=== PATIENT | female | born 1940 | race Caucasian/White ===

== ENCOUNTER 2018-04-09 07:02 | Day surgery (SDC) | payer MEDICARE, BC ==
[~2018-04-09 07:02] MED LIST: HYDROmorphone 0.5 MG/0.5 ML SYRINGE IVP PRN; LACTATED RINGERS 1,000 ML IV SCH; LIDOCAINE 1% 20 ML VIAL (10MG/ML) FOR IV START INTRADERMA PRN; ONDANSETRON 4 MG/2 ML VIAL IVP ONE; Pre Op ABX Message 1 EACH MISC MISCELLANE ONE
[2018-04-09 08:18] VITALS: TEMP 97.7
[2018-04-09 08:30] LABS: Glucose,Whole Blood 133 mg/dL (75-99)
[2018-04-09] MEDS ORDERED: SODIUM CHLORIDE 0.9% 500 ML IV ONE ×2 (08:35)
[2018-04-09] MEDS ORDERED: MIDAZOLAM 2 MG/2 ML VIAL IVP ONE (08:36)
[2018-04-09 08:59] LABS: Anisocytosis Slight; Basophils % (A) 0 %; Eosinophils # (A) 0.2 k/uL (0-0.7); Eosinophils % (A) 3 %; HCT 33.1 % (34.0-46.0); HGB 10.3 gm/dL (11.4-16.0); Hypochromasia Moderate; Lymphocytes # (A) 1.4 k/uL (1.0-4.8); Lymphocytes % (A) 21 %; MCH 24.9 pg (25.0-35.0); MCHC 31.1 g/dL (31.0-37.0); Mean Platelet Volume 7.9; Microcytosis Slight; Monocytes # (A) 0.5 k/uL (0-1.0); Monocytes % (A) 8 %; Neutrophils # (A) 4.3 k/uL (1.3-7.7); Neutrophils % (A) 66 %; Platelet Count 205 k/uL (150-450); RBC 4.13 m/uL (3.80-5.40); RDW 19.1 % (11.5-15.5); WBC 6.5 k/uL (3.8-10.6)
[2018-04-09] MEDS ORDERED: LIDOCAINE 2%-EPI 1:100,000 20 ML VIAL ONE (09:03)
[2018-04-09] MEDS ORDERED: MIDAZOLAM 2 MG/2 ML VIAL ONE (09:03)
[2018-04-09] MEDS ORDERED: fentaNYL (PF) 50 MCG/ML 2 ML AMP ONE (09:03)
[2018-04-09] MEDS ORDERED: PROPOFOL 10 MG/ML 20 ML VIAL IV ONE (09:03)
[2018-04-09] MEDS ORDERED: ROPIVACAINE 5 MG/ML 30 ML VIAL ONE (09:03)
--- NOTE | 2018-04-09 09:05 | P.ONQ ---
Anesthesiology Proc Note - PNB - Peripheral Nerve Block Performed Left Axillary Single Time Out Performed: Yes (0832) Procedure Start Time: 08:32 Procedure Stop Time: 08:42 Indication: Acute Post-Operative Pain, Dx/Pain Location (Left hand pain), Requested by physician Sedation Type: Sedate with meaningful contact maintained Preparation: Sterile Prep Position: Supine Catheter: None Needle Types: On-Q Needle Size: 50mm (2") Needle Gauge: 21 Injectate: Other (see comment) (15ml 0.5% Ropivacaine with 10ml 2% Lidocaine with 1:200,000 epi) Blood Aspirated: No Pain Paresthesia on Injection Noted: No Resistance on Injection: Normal Events: Uneventful and Well Tolerated
[2018-04-09 09:10] LABS: Potassium 3.5 mmol/L (3.5-5.1)
[2018-04-09 10:15] VITALS: RESP 16
[2018-04-09 10:25] LABS: Glucose,Whole Blood 125 mg/dL (75-99)
[2018-04-09 10:40] VITALS: BP 148/78; PULSE 55
--- NOTE | 2018-04-09 11:44 | OP ---
OPERATIVE REPORT DATE OF SERVICE: 04/09/2018 PREOPERATIVE DIAGNOSIS: 1. Basal joint arthritis, left thumb. 2. Left cubital tunnel syndrome. 3. Recurrent left carpal tunnel syndrome. FINAL DIAGNOSES: 1. Basal joint arthritis, left thumb. 2. Left cubital tunnel syndrome. 3. Recurrent left carpal tunnel syndrome. PROCEDURE: 1. Excision of trapezium with ligament reconstruction tendon interposition arthroplasty using the flexor carpi radialis basal joint left thumb. 2. Cubital tunnel release, left elbow. 3. Redo carpal tunnel release left wrist with neurolysis of the median nerve. SURGEON: Baudilio Eller DO. SENIOR MARKETING DATA ANALYST: Rosa Maria Sadler. GROSS PATHOLOGY: Regarding the redo carpal tunnel. There was minimal adhesion of the median nerve and there were little signs of excess tension on the ligament. The release went without complication and the nerve appeared to be intact. DESCRIPTION OF PROCEDURE: The patient was taken to the Operative Suite after an axillary block was performed by the Department of Anesthesia in the holding area with good results. The involved arm was prepped and draped in the usual manner, elevated, exsanguinated and blood pressure tourniquet inflated to 250 mm of mercury. A volar incision was made over the palm of the hand using a Woodward approach. The dissection was taken through the subcutaneous tissue bluntly to identify and to preserve sensory branches. The flexor carpi radialis tendon was initially identified and kept in view throughout the remainder of the procedure. The thenar muscles were then gently dissected off of the volar capsule and reflected ulnarly and distally. Longitudinal arthrotomy was then made into the trapezial metacarpal and scaphotrapezial joints. The trapezium was dissected sharply with a little traction on the thumb and care again, given to monitoring the position of the flexor carpi radialis. The trapezium was osteotomized and removed in piecemeal fashion using rongeur. Again, the flexor carpi radialis tendon was kept intact so as not to be harmed during this portion of the procedure. A drill hole was then made into the base of the first metacarpal, beginning with an awl and enlarged using drill bits and a large curette. A similar hole was drilled on the dorsal aspect of the base of the first metacarpal perpendicular to the plane of the nail bed. Attention was then turned to harvesting the flexor carpi radialis. Approximately 8 to 10 cm proximal to the wrist, small transverse incision was made and blunt dissection was taken through the subcutaneous tissue. The flexor carpi radialis tendon was identified and released to this level. It was retracted into the wrist wound with a gentle tug. A suspension sling arthroplasty was then performed along with ligament reconstruction of the deep volar ligament using the flexor carpi radialis tendon. The edge of the tendon was secured with suture. The suture was then passed into the base of the first metacarpal and brought out through the dorsal drill hole and brought back down upon itself and abductor pollicis longus tendons. It was secured in place with 3-0 PDS suture. It was then brought back around itself, back through the abductor pollicis longus tendons, and back down upon itself again and further secured with 3-0 PDS suture. Again, in this manner reconstruction of the deep volar ligament was accomplished as well as a suspension sling arthroplasty and natural tendon spacer for the joint. Next, a longitudinal incision was made along the ring finger ray distal to the wrist crease. Dissection was taken through the skin and subcutaneous tissue, initially sharp through the skin and then blunt through the subcutaneous tissue to ensure protection of any potential terminal transverse branches of the palmar cutaneous nerve. The palmar fascia was then incised under direct vision longitudinally exposing the transverse carpal ligament. The transverse carpal ligament also was incised under direct visualization. The median nerve was then reflected free of tenosynovium to ensure no adhesions. At this point, a slight hour glass constriction was noted of the median nerve beneath the transverse carpal ligament. Both wounds were again irrigated and were closed with running and interrupted 5-0 nylon suture. A soft bulky dressing was then applied including the volar plaster splint, immobilizing the wrist in neutral position and a thumb spica splint to the IP joint, immobilizing the thumb. Next, a longitudinal incision was then made, somewhat posteriorly near the olecranon. Dissection was then taken through the skin and subcutaneous tissue with blunt dissection then performed to protect any posterior ranches of the medial antebrachial cutaneous nerve of the arm. The ulnar nerve was then visualized in the retrocondylar groove and was traced in both the proximal distal direction. Care was taken to ensure all potential site of nerve entrapment were decompressed including the arcade of Rudolph, the medial intermuscular septums, the retrocondylar groove, decubital tunnel and the flexor aponeurosis distally. Care was taken to avoid dissecting the ulnar nerve from it?s vascular supply. At the completion of the procedure, the elbow was placed in flexion and there is no signs of subluxation. The wound was then irrigated and the skin was closed with running 5-0 nylon suture. Marcaine was injected for long acting anesthetic. A soft bulky dressing was applied and the patient taken to the recovery room in satisfactory condition. MMODL / IJN: [id number] /
== END 2018-04-09 10:59 | disposition home or self-care (01) ==
LOC: OR 07:02
PROVIDERS: ATTEND Orthopaedic Surgery Hand Surgery
DX: M18.12 Unilateral primary osteoarthritis of first carpometacarpal joint, left hand (principal); G56.22 Lesion of ulnar nerve, left upper limb; G56.02 Carpal tunnel syndrome, left upper limb; I13.11 Hypertensive heart and chronic kidney disease without heart failure, with stage 5 chronic kidney disease, or end stage renal disease; E11.22 Type 2 diabetes mellitus with diabetic chronic kidney disease; N18.6 End stage renal disease; E11.40 Type 2 diabetes mellitus with diabetic neuropathy, unspecified; Z99.2 Dependence on renal dialysis; I25.10 Atherosclerotic heart disease of native coronary artery without angina pectoris; I44.4 Left anterior fascicular block; E78.5 Hyperlipidemia, unspecified; I25.2 Old myocardial infarction; M19.90 Unspecified osteoarthritis, unspecified site; E66.9 Obesity, unspecified; R26.81 Unsteadiness on feet; H91.90 Unspecified hearing loss, unspecified ear; Z79.4 Long term (current) use of insulin; Z79.02 Long term (current) use of antithrombotics/antiplatelets; Z79.899 Other long term (current) drug therapy; Z79.82 Long term (current) use of aspirin; Z85.3 Personal history of malignant neoplasm of breast; Z98.61 Coronary angioplasty status; Z88.2 Allergy status to sulfonamides; Z98.84 Bariatric surgery status; Z87.891 Personal history of nicotine dependence; Z88.1 Allergy status to other antibiotic agents; Z68.37 Body mass index [BMI] 37.0-37.9, adult
CPT/HCPCS: 64718; 64721; 25447; 25310; 82565; 84132; 84520; 85025; J2250; J2405; J3010; J2795; J2704

== ENCOUNTER 2019-02-04 12:46 | Day surgery (SDC) | payer MEDICARE, BC ==
[2019-02-03 13:59] VITALS: BMI 31.6
[~2019-02-04 12:46] MED LIST changes: +DEXAMETHASONE SOD PHOSPHATE 10 MG/ML 1 ML VIAL IV ONE; +MIDAZOLAM 2 MG/2 ML VIAL IV PRN; -Pre Op ABX Message 1 EACH MISC MISCELLANE ONE; +fentaNYL (PF) 50 MCG/ML 2 ML AMP IVP PRN
[2019-02-04 13:05] VITALS: RESP 16; TEMP 97.5
[2019-02-04 13:13] LABS: Glucose,Whole Blood 79 mg/dL (75-99)
[2019-02-04] MEDS ORDERED: fentaNYL (PF) 50 MCG/ML 2 ML AMP IV ONE (13:16)
[2019-02-04] MEDS ORDERED: PROPOFOL 10 MG/ML 20 ML VIAL IV ONE (13:30)
[2019-02-04] MEDS ORDERED: ROPIVACAINE 5 MG/ML 30 ML VIAL ONE (13:30)
[2019-02-04] MEDS ORDERED: DEXAMETHASONE SOD PHOSPHATE 4 MG/ML 1 ML VIAL ONE (13:30)
--- NOTE | 2019-02-04 13:49 | P.ANPRN ---
Procedure Note - Anesthesia - Nerve Block Performed Right Supraclavicular Single Time Out Performed: Yes Date of Procedure: 02/04/19 Procedure Start Time: :16 Procedure Stop Time: Location of Patient: PreOp Indication: Acute Post-Operative Pain, Requested by Surgeon Sedation Type: Sedate with meaningful contact maintained Preparation: Sterile Prep Position: Sitting Catheter: None Needle Types: Pajunk Needle Gauge: 21 Ultrasound used to visualize needle placement: Yes Ultrasound used to observe medication spread: Yes Injectate: 0.5% Ropivacaine (see comment for volume) (30 cc + decadron 4mg) Blood Aspirated: No Pain Paresthesia on Injection Noted: No Resistance on Injection: Normal Image Stored and Saved: Yes Events: Uneventful and Well Tolerated
[2019-02-04 14:15] VITALS: BP 131/63; PULSE 62
[2019-02-04 14:33] LABS: Glucose,Whole Blood 115 mg/dL (75-99)
--- NOTE | 2019-02-07 23:53 | OP ---
OPERATIVE REPORT PROCEDURE DATE: 02/04/2019. PREOPERATIVE DIAGNOSIS: Basal joint arthritis, right thumb. PROCEDURE PERFORMED: Excision of trapezium with ligament reconstruction, tendon interposition arthroplasty using the flexor carpi radialis tendon. 1ST ASSIST: Rosa Maria Sadler. DESCRIPTION OF PROCEDURE: The patient was taken to the Operative Suite after an axillary block was performed by the Department of Anesthesia in the holding area with good results. The involved arm was prepped and draped in the usual manner, elevated, exsanguinated and blood pressure tourniquet inflated to 250 mm of mercury. A volar incision was made over the palm of the hand using a Woodward approach. The dissection was taken through the subcutaneous tissue bluntly to identify and to preserve sensory branches. The flexor carpi radialis tendon was initially identified and kept in view throughout the remainder of the procedure. The thenar muscles were then gently dissected off of the volar capsule and reflected ulnarly and distally. Longitudinal arthrotomy was then made into the trapezial metacarpal and scaphotrapezial joints. The trapezium was dissected sharply with a little traction on the thumb and care again, given to monitoring the position of the flexor carpi radialis. The trapezium was osteotomized and removed in piecemeal fashion using rongeur. Again, the flexor carpi radialis tendon was kept intact so as not to be harmed during this portion of the procedure. A drill hole was then made into the base of the first metacarpal, beginning with an awl and enlarged using drill bits and a large curette. A similar hole was drilled on the dorsal aspect of the base of the first metacarpal perpendicular to the plane of the nail bed. Attention was then turned to harvesting the flexor carpi radialis. Approximately 8 to 10 cm proximal to the wrist, small transverse incision was made and blunt dissection was taken through the subcutaneous tissue. The flexor carpi radialis tendon was identified and released to this level. It was retracted into the wrist wound with a gentle tug. A suspension sling arthroplasty was then performed along with ligament reconstruction of the deep volar ligament using the flexor carpi radialis tendon. The edge of the tendon was secured with suture. The suture was then passed into the base of the first metacarpal and brought out through the dorsal drill hole and brought back down upon itself and abductor pollicis longus tendons. It was secured in place with 3-0 PDS suture. It was then brought back around itself, back through the abductor pollicis longus tendons, and back down upon itself again and further secured with 3-0 PDS suture. Again, in this manner reconstruction of the deep volar ligament was accomplished as well as a suspension sling arthroplasty and natural tendon spacer for the joint. Next, a longitudinal incision was made along the ring finger ray distal to the wrist crease. Dissection was taken through the skin and subcutaneous tissue, initially sharp through the skin and then blunt through the subcutaneous tissue to ensure protection of any potential terminal transverse branches of the palmar cutaneous nerve. The palmar fascia was then incised under direct vision longitudinally exposing the transverse carpal ligament. The transverse carpal ligament also was incised under direct visualization. The median nerve was then reflected free of tenosynovium to ensure no adhesions. At this point, a slight hour glass constriction was noted of the median nerve beneath the transverse carpal ligament. Both wounds were again irrigated and were closed with running and interrupted 5-0 nylon suture. A soft bulky dressing was then applied including the volar plaster splint, immobilizing the wrist in neutral position and a thumb spica splint to the IP joint, immobilizing the thumb. The patient was then taken to the Recovery Room in satisfactory condition. GROSS PATHOLOGY: Due to the presence of an arterial venous vascular connection for her dialysis, no tourniquet was used on the right arm. Hemostasis was maintained with pressure electrocautery. MMSUNITA / MOEN: [id number] /
== END 2019-02-04 14:48 | disposition home or self-care (01) ==
LOC: OR 12:46
PROVIDERS: ATTEND Orthopaedic Surgery Hand Surgery
DX: M19.041 Primary osteoarthritis, right hand (principal); I10 Essential (primary) hypertension; I25.2 Old myocardial infarction; C50.912 Malignant neoplasm of unspecified site of left female breast; E11.40 Type 2 diabetes mellitus with diabetic neuropathy, unspecified; N28.9 Disorder of kidney and ureter, unspecified; H91.90 Unspecified hearing loss, unspecified ear; Z95.5 Presence of coronary angioplasty implant and graft; Z88.2 Allergy status to sulfonamides; Z88.1 Allergy status to other antibiotic agents; Z87.891 Personal history of nicotine dependence; Z86.73 Personal history of transient ischemic attack (TIA), and cerebral infarction without residual deficits; Z99.2 Dependence on renal dialysis; Z79.4 Long term (current) use of insulin; Z79.82 Long term (current) use of aspirin; Z79.02 Long term (current) use of antithrombotics/antiplatelets; Z79.899 Other long term (current) drug therapy; Z98.84 Bariatric surgery status; Z98.890 Other specified postprocedural states; Z97.3 Presence of spectacles and contact lenses
CPT/HCPCS: 25447; 64415; 76942; 84132; J2250; J1100 ×2; J0690; J2405; J3010; J2795; J2704; 64413

== ENCOUNTER → 2020-09-07 | Outpatient (CLI) | payer MEDICARE, BC ==
--- NOTE | 2020-09-08 13:15 | CT ---
EXAMINATION TYPE: CT chest w con DATE OF EXAM: 09/07/2020 COMPARISON: None HISTORY: chest pain x 1 month, hx of breast ca CT DLP: 306.2 mGycm, Automated exposure control for dose reduction was used. CONTRAST: Performed injected with 80cc mL of Isovue 300. TECHNIQUE: Axial images were obtained at 5 mm thick sections. Reconstructed images are reviewed on [employer] computer in the coronal plane. FINDINGS: Portion of the thyroid visualized is normal. Small bilateral pleural effusions are present. No suspicious infiltrates are evident. A small nodular densities in the periphery of the right lung measuring 0.3 cm. Series 4 image 26. No enlarged mediastinal or hilar adenopathy is evident. A borderline 0.96 cm nodules in the pretrach eal space. The ascending aorta diameter at the level of the main pulmonary artery is 3.2 cm. The julissa n pulmonary artery diameter at the bifurcation is 3.[address] sections are obtained through the upper abdomen. Kidneys appear somewhat atrophic. There i s a cyst in the posterior right kidney measuring 2.0 cm 16 Hounsfield units IMPRESSIONS: 1. Small bilateral pleural effusions. 2. 0.3 cm nodular density periphery right midlung. Follow-up in 6 months is recommended.
== END | disposition home or self-care (01) ==
LOC: RADCTMAIN 16:55
PROVIDERS: ATTEND Family Medicine
DX: J90 Pleural effusion, not elsewhere classified (principal); J98.4 Other disorders of lung; Z85.3 Personal history of malignant neoplasm of breast
CPT/HCPCS: 82565; 84520; 71260; 36415; Q9967